=== PATIENT | female | born 1945 | race Caucasian/White ===

== ENCOUNTER → 2022-07-01 12:33 | Outpatient (CLI) | payer MEDICARE, OTHER, SELFPAY ==
--- NOTE | 2022-07-01 | DI.RAD.S_ITS ---
PROCEDURE: XR KNEE LT 3V INDICATIONS: Bilateral primary osteoarthritis of knee TECHNIQUE: 3 views of the knee were acquired. COMPARISON: None. FINDINGS: Bones: No fractures or dislocations. Severe joint space narrowing of the medial lateral compartments, moderate patellofemoral compartment narrowing, tricompartmental spurring. Degenerative changes of the right knee also present. Soft tissues: Small joint effusion. No suspicious soft tissue calcifications. IMPRESSION: Degenerative changes of the knee. Small nonspecific joint effusion. If symptoms persist, follow-up radiographs and/or CT or MRI may be helpful for further evaluation. Dictated by: Dominick Dia M.D. on 07/01/2022 at 16:47 Approved by: Dominick Dia M.D. on 07/01/2022 at 16:49
== END ==
PROVIDERS: PCP Physician Assistant; Referring Provider Internal Medicine; Visit Provider Internal Medicine
DX: M17.0 Bilateral primary osteoarthritis of knee (principal)
CPT/HCPCS: 73562

== ENCOUNTER → 2022-10-26 09:55 | Outpatient (CLI) | payer MEDICARE, OTHER, SELFPAY ==
[2022-10-26 11:02] LABS: Add Manual Diff / Slide Review NO; Basophils Absolute Auto 100 /uL (0-100); Basophils Percent Auto 1.1 % (0-2); Eosinophils Absolute Auto 200 /uL (0-450); Eosinophils Percent Auto 3.3 % (2-4); Hematocrit 41.4 % (36-46); Hemoglobin 14.4 g/dL (12.0-16.0); Lymphocytes Absolute Auto 2000 /uL (1100-4500); Lymphocytes Percent Auto 28.8 % (25-40); Mean Corpuscular HGB Conc 34.8 % (30-36); Mean Corpuscular Hemoglobin 30.9 PG (26-34); Mean Corpuscular Volume 88.9 fL (80-100); Monocytes Absolute Auto 500 /uL (0-900); Monocytes Percent Auto 6.8 % (3-14); Neutrophils Absolute Auto 4100 /uL (1500-7000); Platelet Count 288 X10^3/uL (150-400); Red Blood Cell Count 4.66 X10^6/uL (4.0-5.2); White Blood Cell Count 6.9 X10^3/uL (4.5-11.0)
[2022-10-26 11:28] LABS: BUN Creatinine Ratio 10.4 (6-22); Blood Urea Nitrogen 8 mg/dL (7-17); Calcium 9.7 mg/dL (8.4-10.2); Carbon Dioxide 29 mmol/L (22-32); Chloride 100 mmol/L (98-107); Estimated Glomerular Filt Rate > 60 mL/min (>60); Glucose 89 mg/dL (80-110); HEMOLYSIS < 15 (0-50); Potassium 3.9 mmol/L (3.4-5.1); Sodium 136 mmol/L (137-145)
[2022-10-26 11:50] LABS: Hemoglobin A1C% w Est Avg Glu 4.8 % (4.0-6.0)
== END ==
PROVIDERS: PCP Physician Assistant; Referring Provider Orthopaedic Surgery Adult Reconstructive Orthopaedic Surgery; Visit Provider Orthopaedic Surgery Adult Reconstructive Orthopaedic Surgery
DX: Z01.818 Encounter for other preprocedural examination (principal); R73.9 Hyperglycemia, unspecified; Z01.812 Encounter for preprocedural laboratory examination
CPT/HCPCS: 36415; 80048; 83036; 85025; 93005

== ENCOUNTER 2023-02-02 07:44 | Day surgery (SDC) | payer MEDICARE, OTHER, SELFPAY ==
[2023-01-23 08:35] VITALS: BMI 32.5
[2023-02-02] VITALS (12 sets, daily range): BP systolic 114–132; BP diastolic 50–68; PULSE 64–90; RESP 16–22; TEMP 35.8–36.4; O2SAT 94–99; BMI 32.5; BMI 32.1
--- NOTE | 2023-02-02 07:26 | DI.RAD.S_ITS ---
PROCEDURE: XR KNEE LT 1TO2V INDICATIONS: left total knee TECHNIQUE: 2 view(s) of the knee acquired. COMPARISON: [facility], CR, XR KNEE LT 3V, 07/01/2022, 12:41. FINDINGS: Bones: Patient is status post knee joint arthroplasty. Hardware components are in expected positions. Visualized bony structures are intact. Soft tissues: Overlying postoperative changes are noted. IMPRESSION: Expected immediate postoperative appearance, status post total left knee arthroplasty. Dictated by: Roge Son M.D. on 02/02/2023 at 15:45 Approved by: Roge Son M.D. on 02/02/2023 at 15:45
[2023-02-02] MEDS: ACETAMINOPHEN 325 MG TABLET 975 MG PO (08:23)
[2023-02-02] MEDS: LACTATED RINGERS 1,000 ML 42 ML IV ×2 (08:23→10:42)
[2023-02-02] MEDS: MELOXICAM 7.5 MG TABLET PO (08:23)
--- NOTE | 2023-02-02 09:32 | PM.PREOP ---
Pre-operative Note Interval Note History & Physical reviewed/Exam performed by Physician: Yes Changes to H&P: No
[2023-02-02] MEDS: CEFAZOLIN 2 GM/100 ML PREMIX 100 ML IV ×2 (10:00→17:35)
[2023-02-02] MEDS: ACETAMINOPHEN IV 1,000 MG/100 ML VIAL 400 MG IV (10:25)
--- NOTE | 2023-02-02 10:26 | SUR.OPER ---
Supine on padded OR bed. Pillow under head, arms secured on padded armboards <90 degree abduction. Safety belt across torso. Non-operative leg secured with tape over blanket over lower leg. Operative leg secured in DeMayo/Donovan/Nathe positioner. Foam padded brace at thigh of operative leg.
[2023-02-02] MEDS: TRANEXAMIC ACID 1,000 MG VIAL 1000 MG INJ ×2 (10:36→11:42)
[2023-02-02] MEDS: ROPIVACAINE/EPI/CLONIDINE/KET 50 ML SYRINGE INJ (10:36)
--- NOTE | 2023-02-02 12:06 | P.OP_ITS ---
Operative Date/Time/Diagnoses Date of procedure: 02/02/23 Pre-op diagnosis: Left knee arthritis Post-op diagnosis: same Procedure & Clinicians Procedure: Left total knee arthroplasty ([id number]) Same procedure as scheduled: Yes Surgeon: Josse De La Garza [facility] Former: Mart Clark Anesthesia Type: Spinal, Peripheral nerve block and Local Operative Notes Estimated Blood Loss (mL): 150 Tourniquet time (min): 77 Procedure in detail: Implants: Анна Persona Medial Congruent Total Knee Arthroplasty: * Size 9 narrow Cruciate Retaining Femoral Component * Size D Tibial Component * Size 11 Medial Congruent Polyethylene Insert * Unresurfaced Patella Procedure in Detail: This patient was evaluated for knee pain which caused significant impairment in activities of daily living and correlated to degenerative changes in the knee. ?These symptoms were refractory to extensive attempts at nonoperative management. ?Risks and benefits of operative versus nonoperative management were discussed at length and the patient wished to proceed with operative management. ?The patient was met in the preoperative holding area. ?All questions were answered. ?The operative site was marked. ?Informed consent was signed. ?The patient was brought back to the operating room and anesthesia was induced. ?After being transferred to the operating table, the operative extremity was prepped and draped in the usual sterile fashion. ?A time-out procedure was performed. ?The assistance of a physician medical assistant supervisor was required throughout the case for soft tissue retraction, positioning, wound closure, room set up. ?W ithout the assistance of a skilled practitioner the surgery would have taken significantly longer. The tourniquet was inflated and a medial parapatellar approach to the knee was utilized. ?Flaps were elevated and the arthrotomy was marked to guide closure at the conclusion of the procedure. ?A medial release was performed off of the tibial joint line. ?Soft tissue was released from behind the patellar tendon to clear the lateral side of the tibia. ?The knee was brought into flexion and an opening reamer was used to open the canal. ?An intramedullary guide was introduced. ?A 5 degree resection with a +2 cut had been planned based off of the preoperative imaging and assessment of the patient's preoperative passive knee extension. ?This was resected. ?The knee was hyperflexed and externally rotated to allow access to the cruciates. ?These were resected. ?Retractors were placed on the medial, posterior and lateral tibia and additional resection at the base of the PCL was used to allow the tibia to sublux anteriorly providing access to the tibia. A opening reamer was used to open up the tibial canal beginning at the ACL insertion. ?An intramedullary javid was introduced down the diaphysis and a +4 cut was planned off of the medial side of the tibia. ?This was performed and the knee was brought back to full extension. A 10 mm spacer block allowed the knee to come into full extension. ?A force gauge screw combine driver was used on the fusion tensioner and the knee was noted to be symmetrically balanced with 60 lb of force at 10 mm. ?The knee was brought into flexion and the force gauge screwdriver was used to apply 60 pounds of force which balanced the rotation at 7 degrees. I pinned this in the 10 mm hole and sized using a measured resection sizer. After placing the corresponding 4-in-1 block I again checked the balance of the knee at 90 degrees of flexion with the Fuzion tensioner and found it to be satisfactory. I checked the notch point with an ata wing. Being satisfied with the position of my 4 in 1 block both in terms of gap symmetry and gap balance I performed the 4 in 1 cuts while protecting the soft tissues with soft tissue retractors. ?The four in 1 block was removed and corresponding trials were placed including a floating tibia. ?The knee achieved full extension, had minimal opening with either medial or lateral stress, had good passive knee flexion which allowed the heel to rest on the patient's buttock, had good patellar tracking, and had minimal lift-off with external and internal rotation at 90? of flexion. Being satisfied with this trial I planned to move forward with cementation. ?The tibia and femur were irrigated and dried. ?Portions of chamfer cuts were used as cement restrictors in the femur and tibia. The tibia was sized and prepped while cement was mixed. ?The cement was placed down the canal and pressurized into the cut tibial surface. ?The tibial component was covered in cement and placed in the canal as it was guided in by the keel punch. ?Cement was removed from around the tibial component and a second round of impaction was performed with a second round of cement removal. ?The knee was flexed and the tibia was reduced und erneath the femur. ?Cement was placed on the femur and the femoral component was impacted into place. ?Excess cement was removed from around the femur. ?A trial insert was used for the cement curing process. ?The cement was allowed to cure while the knee remained in full extension with pressure on the heel. ?The soft tissues were bathed in a dilute mixture of Betadine and peroxide. ?The cement was allowed to fully cure and the polyethylene trial was removed. The posterior knee was inspected for excess cement and some was removed. The knee was again trialed and I elected to move forward with implantation of a 11 mm medial congruent polyethylene. ?The correspond polyethylene implant was inserted. ?The tourniquet was taken down. ?Hemostasis was achieved. ? A dilute mixture of ropivacaine epinephrine clonidine and ketorolac was injected throughout the wound including the MCL, posterior capsule on the medial side only, VMO, medial femoral periosteum, lateral femoral periosteum, patellar t endon and adductor canal to provide a low adductor canal block. ?The wound was closed using a combination of Vicryl Stratafix and Monocryl sutures. ?Dermabond was applied. ?A soft dressing was applied. ?The knee was wrapped in an Mike wrap and ice was applied prior to the patient leaving operating room. ?The patient was transferred off of the operating table and taken to the PACU. Plan for aftercare: * Transfer to floor following recovery in PACU * Transition from hospital gown to regular clothing immediately upon arrival on floor * Weightbearing as tolerated * Mobilization as soon as the patient has recovered from anesthesia * Aspirin 81 twice per day for DVT prophylaxis * Multimodal pain regimen with no IV opioids ordered * Anticipate mobilization with physical therapy today and discharge home tomorrow morning. Patient will remain in hospital overnight for monitoring given baseline dementia and delirium risk * Follow up at [facility] in 2 weeks
[2023-02-02] MEDS: LACTATED RINGERS 1,000 ML 100 ML IV (13:30)
[2023-02-02] MEDS: ACETAMINOPHEN 325 MG TABLET 650 MG PO ×2 (13:30→18:22)
--- NOTE | 2023-02-02 16:32 | PT.IIE ---
Current Diagnoses Unilateral primary osteoarthritis, left knee (02/02/23) Surgery Performed Operation Date: 02/02/23 09:45 Actual Procedures p Total Knee Arthroplasty(Left) - Josse De La Garza MD Surgical History (Last Updated 01/23/23 @ 09:23 by Ene Viveros, RN) Hx of craniotomy (07/2019) Medical History (Last Updated 01/23/23 @ 09:23 by Ene Viveros, RN) Alzheimer's dementia Balance problem Chronic UTI Depression HLD (hyperlipidemia) Seizures Physical Therapy Inpatient Evaluation/Re-Eval M1 PT/OT-IP Prior Functional Status Start: 02/02/23 15:22 Freq: NEEDED Status: Active Protocol: Document 02/02/23 16:00 MB (Rec: 02/02/23 16:32 MB [id number]) Medical Review Prior Functional Status Medical History Reviewed Yes Diet/Fluid Consistency Regular Communication Pt is hypoverbal and answers most questions. He reports, there's some dementia setting in Mobility and Gait I without AD Activities of Daily Living and IADL's I for her ADLs, pt does driving, shopping, etc Social History Household Members spouse Living Arrangements House Number of Floors (Floors) One Floor Number of Stairs To Enter/Railing? 1 platform step to enter Home Environment Standard Height Toilet,Walk in Shower Home Equipment Front Wheel Walker Employment Status Retired M2 PT-IP Current Condition Start: 02/02/23 15:22 Freq: NEEDED Status: Active Protocol: Document 02/02/23 16:00 MB (Rec: 02/02/23 16:32 MB [id number]) Physical Therapy Current Condition Current Condition Evaluation Date 02/02/23 Treatment Diagnosis L TKA M3 PT-IP Subjective Start: 02/02/23 15:22 Freq: NEEDED Status: Active Protocol: Document 02/02/23 16:00 MB (Rec: 02/02/23 16:32 MB [id number]) Subjective Physical Therapy Visit Type Type Initial Evaluation Visit Start Time 16:00 Visit Stop Time 16:22 Total Visit Minutes 22 Number of CORRECTIONAL MAINTENANCE TECHNICIAN Visits 0 Physical Therapy Visit Comments Patient Comments I'm okay! Therapy Pain Assessment Pain When Pain Assessed During Mobility Pain Present Pain Present Pain Reported Location Left Knee Intensity 4 Scale Used Pitts-Alejandra (Faces) Description Acute Pain Behaviors Facial Grimacing,Guarding Pain Management Techniques Apply Cold,Distraction,Re- positioning M4 PT-IP Mobility and Gait Start: 02/02/23 15:22 Freq: NEEDED Status: Active Protocol: Document 02/02/23 16:00 MB (Rec: 02/02/23 16:32 MB [id number]) PT-Bed Mobility Assessment Supine to Sit Supine to Sit Minimal Assistance,1 Person Assistance,Head of Bed Elevated,Bedrails Scooting Scooting to Edge of Bed Minimal Assistance PT-Transfer Assessment Sit to and From Stand Sit to and from Stand Minimal Assistance,1 Person Assistance,Use of Upper Extremities Equipment Transfer Assistive Device Gait Belt,Front Wheeled Walker Orthotic/Prosthetic Devices or Brace: No Transfers Transfer Destination Chair Transfer Technique Stepping Transfer Ability Level of Assist Minimal Assistance,1 Person Assistance,Use of Upper Extremities Comments Mobility Comments PT positions gait belt around left foot and pt is able to use it with cues to scoot her left leg to the left and then PT also provides assistance. Min to CGA for transfers with cues for hand placement. Also, cues for use of walker and step-to corazon for forward and retropulsion stepping Gait Assessment Gait Gait Assistance Required: Minimum Assistance,1 Person Assist Distance (Feet) 4 Able to Maintain Weight Bearing Status Yes During Gait Assistive Devices Assistive Device Gait Belt,Front Wheeled Walker Orthotic/Prosthetic Devices or Brace: No Gait Deviations General Gait Pattern Decreased Stride Length, Decreased Feet Clearance, Flexed Trunk,Step-to Gait,Wide Based Gait Factors Limiting Gait Function Factors Limiting Gait Function Decreased Activity Tolerance, Decreased Strength,Limited Range of Motion,Poor Safety Awareness Comments Gait Comments Pt has some trouble following functional cues for bed mobility, transfers and stepping PT-Balance Assessment Sitting Balance and Reactions Static Sitting Balance Ability Fair Dynamic Sitting Balance Ability Fair Standing Balance and Reactions Static Standing Balance Ability Fair Dynamic Standing Balance Ability Fair Device Used RW M5 PT-IP Objective Assessments Start: 02/02/23 15:22 Freq: NEEDED Status: Active Protocol: Document 02/02/23 16:00 MB (Rec: 02/02/23 16:32 MB [id number]) Orientation Orientation/Cognition Level of Alertness Confusional State Orientation Name,Birthday Safety Awareness Decreased Safety Awareness Memory Description Short Term Impaired,Fdc Impaired Comments Pt is hypoverbal and is not A& O to situation, location, or date Gross Range of Motion Upper Extremity ROM Assessment Within Functional Limits Lower Extremity ROM Assessment Left Impaired Impairments Left knee range grossly 10-30 deg Strength Lower Extremity Strength Assessment Left Impaired Ankle 4 Comments Strength Comments Left knee and hip not tested post-op Sensation Assessment Comments Sensation Comments Does not clearly answer sensory questions M6 PT-IP Treatment Start: 02/02/23 15:22 Freq: NEEDED Status: Active Protocol: Document 02/02/23 16:00 MB (Rec: 02/02/23 16:32 MB [id number]) Physical Therapy Treatment Exercises Exercises Ankle Pumps,Quad Sets,Heel Slides Education Education Provided Weight Bearing Status,Post-Op Packet,Safety M7 PT-IP Assessment and Plan Start: 02/02/23 15:22 Freq: NEEDED Status: Active Protocol: Document 02/02/23 16:00 MB (Rec: 02/02/23 16:32 MB [id number]) PT Summary Assessment and Plan Potential Rehabilitation Potential Good Status of Condition at Evaluation Evolving Summary Impairments Pain,ROM,Strength,Balance, Cognition,Bed Mobility, Transfers,Gait,Activity Tolerance Progress Towards Goals Progressing Toward Goals Assessment Summary Pt is a pleasant lady presenting with some cognitive challenges who participates well with same day PT consult. She requires min A and cues for most mobility today. She will benefit from acute and post-acute PT to improve functional I. She might benefit from a shower chair or BSC for use at home. Her is supportive and answers most questions. She has not used an AD at home and this may be challenging given cognitive issues and she tends to push it away initially when asked to stand up. states they have a RW like the one in the hospital at home and he does anticipate her using that at d /c. [facility]. Goals Bed Mobility Goal Independent Transfer Goal Independent,Front Wheeled Walker Gait Goal Independent,Front Wheel Walker Gait Distance 75 Other Goals Pt will ascend and descend one platform step with RW and no more than superv assistance to allow safe home entry. Frequency of Treatment Frequency Of Treatment Twice a Day Treatment Plan Physical Therapy Treatment Plan Bed Mobility Training,Transfer Training,Gait Training, Therapeutic Exercise,Balance Retraining,Post Op Education, Discharge Planning,Hot or Cold Pack Weight Bearing Status Weight Bearing Status Weight Bear as Tolerated Recommendations To Nursing Amount of Assist Needed 1 Person Assist Discharge Recommendations PT Discharge Recommendations Home with 29/08 Assist Available,Outpatient PT Transportation Needs at Discharge Private Vehicle
[2023-02-02] MEDS: CITALOPRAM 10 MG TABLET PO (17:35)
[2023-02-02] MEDS: IBUPROFEN 600 MG TABLET PO (18:22)
[2023-02-02] MEDS: DOCUSATE 100 MG CAPSULE PO (20:11)
[2023-02-02] MEDS: ASPIRIN EC 81 MG TABLET PO (20:11)
[2023-02-03] VITALS: BP 153/64; PULSE 82; RESP 16; TEMP 36.5; O2SAT 99
[2023-02-03] MEDS: CEFAZOLIN 2 GM/100 ML PREMIX 100 ML IV (01:16)
[2023-02-03] MEDS: IBUPROFEN 600 MG TABLET PO ×2 (01:16→08:06)
[2023-02-03 05:22] LABS: Hematocrit 32.1 % (36-46); Hemoglobin 11.5 g/dL (12.0-16.0)
[2023-02-03 05:37] VITALS: BP 131/53; PULSE 67; RESP 16; TEMP 36.6; O2SAT 96
--- NOTE | 2023-02-03 07:22 | PM.DS.1 ---
History of Present Illness History of Present Illness Date Patient Seen: 02/03/23 Time Patient Seen: 07:15 Chief complaint: Left TKA 02/02 Narrative: This patient was evaluated for knee pain which caused significant impairment in activities of daily living and correlated to degenerative changes in the knee. ?These symptoms were refractory to extensive attempts at nonoperative management. Left total knee arthorplasty was performed 02/02/2023. Today she is feeling well. She has no required any pain medication during her stay thus far. She has been able to use the toilet with assistance. Denies any fever, chills, nausea or vomiting. No increased pain or swelling into her lower leg. Discharge Providers Provider Date of admission: 02/02/2023 Discharge Date: 02/03/23 Primary care physician: Treasure Mariee PA-C Consults: 02/02/23 07:25 Consult to Anesthesiology Routine Comment: Consulting Provider: Anesthesiologist Reason for consultation: Regional block for post operative pain control 02/02/23 12:59 Consult to Discharge Planning Routine Comment: Consult to Physical Therapy Evaluate & Treat Comment: Physician Instructions: postop TKA protocol Discharge provider: Patrick Croft PA-C Summary Hospital Course Discharge Diagnosis: Status post left knee total arthroplasty Hospital Course: Pain control. Physicial therapy Status at Discharge Cognitive/behavioral status at discharge: oriented Functional status at discharge: uses cane/walker Overall status at discharge: patient is back to baseline Time Spent with Patient Time spent: Less than 30 minutes Exam Vital Signs (past 8 hours): - 02/03/23 00:00 02/03/23 05:37 Temperature 97.7 F 97.8 F Pulse Rate 82 67 Respiratory Rate 16 16 Blood Pressure 153/64 H 131/53 L Pulse Oximetry 99 96 Oxygen Delivery Method Room Air Oxygen Flow Rate 0 Narrative Exam Narrative: Patient found sitting on the edge of her bed after using the toilet with assistance of the METAPHYSICIAN. Dressing is well maintained with no signs of drainage. No pain to compression of posterior thigh and calf. Able to dorsiflex and plantar flex at the ankle against resistance. Lower extremity grossly intact bilaterally. Const General: cooperative, healthy appearing and comfortable Orientation: alert, awake and oriented x3 Resp Effort & Inspection: normal respiratory effort and able to speak in complete sentences Objective Labs 02/03/23 05:04 Labs: Laboratory Results - last 24 hr 02/03/23 05:04 Hgb 11.5 L Hct 32.1 L PFSH Medical History (Updated 01/23/23 @ 09:23 by Ene Viveros, RN) Depression Balance problem Chronic UTI HLD (hyperlipidemia) Seizures Alzheimer's dementia Surgical History (Updated 01/23/23 @ 09:23 by Ene Viveros, RN) Hx of craniotomy (07/2019) Social History household members: spouse Smoking Status: Never smoker alcohol intake: never Discharge Assessment & Plan Assessment and Plan Assessment: Status Post Left Knee Arthroplasty Plan of Treatment: Discharge to home. Postoperative DVT prophylaxis: ASA 81mg bid for 6 weeks. Oxycodone, Mobic and APAP for pain control. Rx received before surgery. Start outpatient PT in 7 to 10 days. Follow up with [facility] in 2 weeks for wound check. Discharge Plan Discharge Plan Patient Disposition: Home Provider Discharge Comment: DC home pending PT approval Discharge orders & Medications Discharge Orders: Discharge (Order); Ordered 02/03/23 Ordered By: Patrick Croft Prescriptions: Continued citalopram 10 mg Tablet 10 mg PO QPM ibuprofen 200 mg Tablet 200 - 400 mg PO DAILY rosuvastatin 10 mg Tablet 10 mg PO DAILY aspirin 81 mg Capsule 81 mg PO DAILY Follow up/Referrals: Treasure Mariee PA-C [Primary Care Provider] - Josse De La Garza MD [Physician] - As previously scheduled (Follow up with Roberta Cao PA-C, on 02/16/2023 @ 1:[address] [facility] in [place].) Diet/Activity/Treatments Diet: Diet as Tolerated Activity: As tolerated. Weightbearing with walker Skin/Wound/Dressing Care Report to your healthcare provider any signs of infection, such as:: chills, fever, night sweats, unusual drainage and unusual redness Dressing: Keep dressing clean and dry for 2 weeks. Should dressing become wet or dirty, replace with gauze padding and cotton wrap Other wound treatment: Ice knee up to 15 minutes three times a day or as previous instructed by surgeon. Visit Report/Discharge Packet Instructions: DI for Knee Replacement Stand Alone Forms: Patient Portal/API, Surgery Discharge Discharge Data Primary Care Provider: Treasure Mariee Attending Provider: Josse De La Garza Quality VTE Deep Vein Thrombosis/Pulmonary Embolism Present on Admission: No
[2023-02-03] MEDS: ATORVASTATIN 20 MG TABLET PO (08:06)
[2023-02-03] MEDS: ACETAMINOPHEN 325 MG TABLET 650 MG PO (08:06)
[2023-02-03] MEDS: ASPIRIN EC 81 MG TABLET PO (08:06)
[2023-02-03] MEDS: DOCUSATE 100 MG CAPSULE PO (08:06)
[2023-02-03 08:25] VITALS: BP 112/50; PULSE 64; RESP 20; TEMP 35.8; O2SAT 96
--- NOTE | 2023-02-03 09:30 | PT.IPTN ---
Current Diagnoses Unilateral primary osteoarthritis, left knee (02/02/23) Surgery Performed Operation Date: 02/02/23 09:45 Actual Procedures p Total Knee Arthroplasty(Left) - Josse De La Garza MD Physical Therapy Treatment Note M2 PT-IP Current Condition Start: 02/02/23 15:22 Freq: NEEDED Status: Discharge Protocol: Document 02/02/23 16:00 MB (Rec: 02/02/23 16:32 MB [id number]) Physical Therapy Current Condition Current Condition Evaluation Date 02/02/23 Treatment Diagnosis L TKA M3 PT-IP Subjective Start: 02/02/23 15:22 Freq: NEEDED Status: Discharge Protocol: Document 02/03/23 09:30 AB (Rec: 02/03/23 13:35 AB [id number]) Subjective Physical Therapy Visit Type Type Treatment Note Visit Start Time 09:30 Visit Stop Time 10:11 Total Visit Minutes 41 Number of HOTEL ASSISTANT MANAGER Visits 0 Physical Therapy Visit Comments Patient Comments agreeable to do PT Therapy Pain Assessment Pain When Pain Assessed During Mobility Pain Present Pain Present Pain Reported Location Left Knee Intensity 3 Scale Used Numeric (0 - 10) Pain Management Techniques Distraction,Modification of Treatment,Re-positioning, Timing of Activity with Medications M4 PT-IP Mobility and Gait Start: 02/02/23 15:22 Freq: NEEDED Status: Discharge Protocol: Document 02/03/23 09:30 AB (Rec: 02/03/23 13:35 AB [id number]) PT-Bed Mobility Assessment Supine to Sit Supine to Sit Standby Assistance Sit to Supine Sit to Supine Standby Assistance PT-Transfer Assessment Sit to and From Stand Sit to and from Stand Contact Guard Assistance,1 Person Assistance,Use of Upper Extremities Equipment Transfer Assistive Device Gait Belt,Front Wheeled Walker Orthotic/Prosthetic Devices or Brace: No Transfers Transfer Destination Bed,Chair Transfer Technique ambulated Transfer Ability Level of Assist Contact Guard Assistance,1 Person Assistance,Use of Upper Extremities Comments Mobility Comments pt supine in bed and agreed to do PT. spouse and brother in room. pt completed supine to sit SBA, sit to stand cGA and ambulated in room using FWW CGA ~ 20 ft. pt sat on the chair. spouse initially stated that he will be able to assist pt but has to use his SPC. initiated caregiver training. educated on how to put safety belt on but spouse was not able to stand long enought to put safety belt on pt. pt's brother stepped in and stated that he can assist pt and can come in daily to assist pt at home. educated pt's brother on how to use safety belt and how to assist pt. brother was able to put safety belt on pt and assisted pt with sit to stand, ambulation in room using FWW CGA. pt sat on EOB and demonstrated sit<>supine SBA. educated pt and brother on how to up/down platform step. pt ambulated to the platform step with PT initially assisting pt using FWW and completed min A. pt completed again with her brother assisting but brother was not able to cue pt and PT has to step in to to provide cues for safety. pt completed again and her brother was able to assist and cue pt on last attempt. pt ambulated back to her room ~ 35 ft using FWW CGA. sat on the chair. positioned pt on the chair. call light and table placed within reach. pt and family without further concerns. Gait Assessment Gait Gait Assistance Required: Contact Guard Assist Distance (Feet) 35 Able to Maintain Weight Bearing Status Yes During Gait Assistive Devices Assistive Device Gait Belt,Front Wheeled Walker Orthotic/Prosthetic Devices or Brace: No Gait Deviations General Gait Pattern Antalgic,Decreased Feet Clearance Factors Limiting Gait Function Factors Limiting Gait Function Decreased Activity Tolerance, Decreased Strength,Difficulty Following Directions,Limited Range of Motion,Pain,Poor Balance,Poor Safety Awareness Stair Climbing Assessment Evaluation Level of Assist On Stairs Minimal Assistance Devices Stair Climbing Assistive Devices Front Wheel Walker Technique/Endurance Stair Climbing Direction Ascend and Descend Stair Climbing Technique Step to Step Number of Steps Climbed 1 Stair Climbing Set # Repetitions (reps) 3 M5 PT-IP Objective Assessments Start: 02/02/23 15:22 Freq: NEEDED Status: Discharge Protocol: Document 02/02/23 16:00 MB (Rec: 02/02/23 16:32 MB [id number]) Orientation Orientation/Cognition Level of Alertness Confusional State Orientation Name,Birthday Safety Awareness Decreased Safety Awareness Memory Description Short Term Impaired,Data Scientist Impaired Comments Pt is hypoverbal and is not A& O to situation, location, or date Gross Range of Motion Upper Extremity ROM Assessment Within Functional Limits Lower Extremity ROM Assessment Left Impaired Impairments Left knee range grossly 10-30 deg Strength Lower Extremity Strength Assessment Left Impaired Ankle 4 Comments Strength Comments Left knee and hip not tested post-op Sensation Assessment Comments Sensation Comments Does not clearly answer sensory questions M6 PT-IP Treatment Start: 02/02/23 15:22 Freq: NEEDED Status: Discharge Protocol: Document 02/03/23 09:30 AB (Rec: 02/03/23 13:35 AB [id number]) Physical Therapy Treatment Education Education Provided Safety M7 PT-IP Assessment and Plan Start: 02/02/23 15:22 Freq: NEEDED Status: Discharge Protocol: Document 02/03/23 09:30 AB (Rec: 02/03/23 13:35 AB [id number]) PT Summary Assessment and Plan Potential Rehabilitation Potential Good Summary Impairments Pain,ROM,Strength,Balance, Coordination,Sensation,Tone, Cognition,Bed Mobility, Transfers,Gait,Activity Tolerance Progress Towards Goals Slow Progress - Other Assessment Summary pt requiring CGA with ambulation and min A with stair climbing. attempted to do training with spouse but spouse was not able to do training to assist pt. caregiver training then conducted with pt and pt's brother. pt's brother was able to assist pt with mobility. pt plans to go home with assist and has outpt PT set up. Goals Bed Mobility Goal Independent Transfer Goal Independent,Front Wheeled Walker Gait Goal Independent,Front Wheel Walker Gait Distance 75 Other Goals Pt will ascend and descend one platform step with FWW and no more than superv assistance to allow safe home entry. Days to Meet Goals 3 Frequency of Treatment Frequency Of Treatment Twice a Day Treatment Plan Physical Therapy Treatment Plan Bed Mobility Training,Transfer Training,Gait Training, Therapeutic Exercise,Balance Retraining,Post Op Education, Discharge Planning,Hot or Cold Pack Weight Bearing Status Weight Bearing Status Weight Bear as Tolerated Allowed Weight Bearing Amount (enter % LLE WBAT or #) (%) Recommendations To Nursing Amount of Assist Needed 1 Person Assist Discharge Recommendations PT Discharge Recommendations Home with 29/08 Assist Available,Outpatient PT Transportation Needs at Discharge Private Vehicle
--- NOTE | 2023-02-03 11:51 | CM.DANOTE ---
Patient is a 78 yo female who was admitted on 02/02/23 for LTKA. Pt has [place] and [place] for [place] and her PCP is Treasure Mariee. EMR was reviewed. Per Ortho PA, pt tolerated procedure well and no pain and voided and now to just work with PT once more before discharge home later today and no identified barriers to discharge. Per PT, recommending home with assist and outpt PT and to do stairs today prior to d/c. Per RN, pt was anxious to get home and discharged right after PT did stair training this morning and no concerns noted for d/c. Pt lives in [facility] with her spouse who was bedside this morning and provided transport home and spouse very supportive and noted that pt now having some mild dementia/memory loss and he confirms he can assist pt as needed at d/c and outpt PT already set up. Plan; Patient discharged home this morning via spouse POV and outpt PT set up. No further SW needs at this time. SALAS Sanderson Discharge Planning/Care Management Pre-Anesthesia Assessment Start: 01/23/23 08:35 Freq: Status: Complete Protocol: Document 01/23/23 08:35 [facility] (Rec: 01/23/23 09:23 CAB [id number]) Pre-Anesthesia Assessment PAC Comment Pt has Alzheimers and would benefit from assisting with admission process dos. Preferred Name Dulcie Patient Information Reviewed Via Phone Assessment Assessment Completed With Spouse Comment Pt has Alzheimer's disease Diagnostic Results BMP/CMP,CBC,EKG Comment Labs/EKG @ [facility] 10/26/22 Primary Care Provider Ivonne Mcdermott Button Comment PCP pre-op visit Seen Specialist in Last 12 Months Yes Specialist Seen Orthopedist Primary Language Syriac Electrician Required No Height 162.56 cm Weight 86.183 kg Body Mass Index (BMI) 32.5 Hearing Ability Normal Visual Assist Glasses Dentition Type Teeth, Natural Present,Teeth, Missing Barriers to Learning Memory Other Aids No Comment Alzheimer's Hx Anesthesia Reactions No Hx Family Anesthesia Reaction No Hx Malignant Hyperthermia No Hx Blood Transfusions No Anesthesia Review Requested No Academic Adviser No alcohol intake never Smoking Status Never smoker Substance Use Type does not use Pain Present Pain Reported Musculoskeletal Symptoms Abnormal Gait,Difficulty Walking,Joint Pain,Joint Stiffness History of Falling (Recent or History of Yes ) Patient is completely paralyzed or No completely immobile Mental Status Oriented to own ability Is patient on oxygen? No Does patient have HINDS/SOB No Hx Sleep Apnea No Currently Taking a Beta Timothy No Hx Chest Pain No Hx SOB No Hx Syncope or Dizziness No Anti-Coagulant Therapy No Has a Meeting Facilitator No Cardiac Testing No Hx Pacemaker/ICD No Pacemaker Rep Required? No Cardiac Clearance Received Not Applicable Diet Type At Home Regular Dysphagia No Gastrointestinal Symptoms Constipation Chronic UTI Yes: Cephalexin TID Urinary Catheter Present No Hx Urinary Self Catheterization No Diabetes No Patient No Lactating No Hx Drug Resistant Organism No Presence of External or Internal Medical No Devices Received a COVID vaccine? Yes Received all doses? No Marital Status Lives With spouse Current Living Arrangements House Number of Floors (Floors) One Floor Support System Family,Spouse Comment Brother in-law will assist with care at [place], along with neighbors Does the Patient Have Assistance After Yes Surgery Patient Discharge Plan Description Return Home Comment Pt not advised on length of stay per surgeon Feels Safe in Current Environment Yes Been Physically Hurt or Threatened By a No Person in Current Environment Do you have thoughts of harming yourself None or others? Are you currently considering suicide? No Do you have a plan to hurt yourself or No Plan others? Do You Have Any Spiritual Beliefs That No May Affect Your HC Choices? Do You Have Any Cultural Practices That No May Affect Your HC Choices? Comment Advent Who Can We Speak to About Patient's Care Family, friends Identifying Code for Release of Patient Declines to issue Information Health Care Proxy/Next of Kin Howard () Health Care Proxy Emergency Contact Name Meño (Brother) Emergency Contact Advance Directives? Yes Advance Directives on File No Power of Roving Weight Gauger Yes Power of Roving Weight Gauger Name Howard () Power of Roving Weight Gauger PAC Instructions Do not shave/clip surgical site,Durable medical equipment ,Medications to take/avoid, Nasal antibiotic,No ETOH/ petroleum product on skin DOS, NPO,Post-op transportation,Pre -surgical wash,Sturdy shoes/ comfortable clothes,Do not bring valuables and remove jewelry
== END 2023-02-03 10:10 | disposition home or self-care (01) ==
LOC: OR 07:48 → AC 07:49
PROVIDERS: PCP Physician Assistant; Referring Provider Orthopaedic Surgery Adult Reconstructive Orthopaedic Surgery; Visit Provider Orthopaedic Surgery Adult Reconstructive Orthopaedic Surgery
PROC: 0SRD0JZ Replacement of Left Knee Joint with Synthetic Substitute, Open Approach (ICD-10-PCS; CPT 27447; principal; 2023-02-02 09:45)
DX: M17.12 Unilateral primary osteoarthritis, left knee (principal)
CPT/HCPCS: 27447; 36415; 73560; 85014; 85018; 97161; 97530; C1776; J0131; J0690; J2405; J2704

== ENCOUNTER → 2024-01-11 12:40 | Outpatient (CLI) | payer MEDICARE, OTHER, SELFPAY ==
[2023-02-02 13:41] VITALS: BMI 32.1
--- NOTE | 2024-01-11 12:56 | EKG_ITS ---
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
== END ==
PROVIDERS: PCP Physician Assistant; Referring Provider Orthopaedic Surgery Adult Reconstructive Orthopaedic Surgery; Visit Provider Orthopaedic Surgery Adult Reconstructive Orthopaedic Surgery
DX: Z01.818 Encounter for other preprocedural examination (principal)
CPT/HCPCS: 93005; 93010

== ENCOUNTER 2024-01-12 11:39 | Day surgery (SDC) | payer MEDICARE, OTHER, SELFPAY ==
[2023-02-02 13:41] VITALS: BMI 32.1
[2024-01-03 09:45] VITALS: BMI 32.5
[2024-01-12] VITALS (11 sets, daily range): BP systolic 90–144; BP diastolic 58–76; PULSE 68–82; RESP 12–18; TEMP 35.9–37; O2SAT 96–99; BMI 32.5
--- NOTE | 2024-01-12 06:00 | DI.RAD.S_ITS ---
PROCEDURE: XR KNEE RT 1TO2V INDICATIONS: TKA TECHNIQUE: 2 view(s) of the knee acquired. COMPARISON: [facility], CR, XR KNEE LT 1TO2V, 02/02/2023, 12:14. FINDINGS: Bones: Patient is status post knee joint arthroplasty. Hardware components are in expected positions. Visualized bony structures are intact. Soft tissues: Overlying postoperative changes are noted. IMPRESSION: Expected post-operative appearance of a knee arthroplasty. Dictated by: Aguila Escobar M.D. on 01/12/2024 at 17:12 Approved by: Aguila Escobar M.D. on 01/12/2024 at 17:12
[2024-01-12] MEDS: ACETAMINOPHEN 325 MG TABLET 975 MG PO (13:25)
[2024-01-12] MEDS: MELOXICAM 7.5 MG TABLET 15 MG PO (13:26)
[2024-01-12] MEDS: LACTATED RINGERS 1,000 ML 42 ML IV (13:32)
--- NOTE | 2024-01-12 13:40 | PM.PREOP ---
Pre-operative Note Interval Note History & Physical reviewed/Exam performed by Physician: Yes Changes to H&P: No
[2024-01-12] MEDS: CEFAZOLIN 2 GM/100 ML PREMIX 100 ML IV ×2 (14:30→22:36)
[2024-01-12] MEDS: TRANEXAMIC ACID 1,000 MG VIAL 1000 MG INJ ×2 (14:38→15:55)
--- NOTE | 2024-01-12 14:53 | SUR.OPER ---
Supine on padded OR bed. Pillow under head, arms secured on padded armboards <90 degree abduction. Safety belt across torso. Non-operative leg secured with tape over blanket over lower leg. Operative leg secured in Donovan positioner. Foam padded brace at thigh of operative leg.
[2024-01-12] MEDS: ROPIVACAINE/EPI/CLONIDINE/KET 50 ML SYRINGE INJ (14:58)
--- NOTE | 2024-01-12 16:12 | P.OP_ITS ---
Operative Date/Time/Diagnoses Date of procedure: 01/12/24 Pre-op diagnosis: Right knee osteoarthritis Post-op diagnosis: same Procedure & Clinicians Procedure: Right total knee arthroplasty Same procedure as scheduled: Yes Surgeon: Josse De La Garza Inward Toll Operator: Angella Guillaume Anesthesia Type: Spinal, Sedation, Peripheral nerve block and Local Operative Notes Estimated Blood Loss (mL): 150 Tourniquet time (min): 54 Procedure in detail: Right Gap-Balanced Анна Persona Medial-Congruent Primary Total Knee Arthroplasty Implants: * Size 7 Cruciate Retaining Femoral Component * Size E Tibial Component * Size 13 Medial Congruent Polyethylene Insert * Unresurfaced Patella Procedure Summary: This 79-year-old female patient had severe erosive wear with complete eburnation of the joint surface on both the medial and lateral compartment. I took a +2 cut on the tibia because of this. She had significant medial tightness so I performed a posterior medial release and this significantly opened up her extension gap such that she opened up to 12 mm with 40 lb of pressure. Based on this I anticipated that a larger size polyethylene would be necessary and found this to be the case as she ended up with a size 13 polyethylene insert. Femoral rotation was set at 7? Procedure in Detail: This patient was seen preoperatively and evaluated for knee pain which was refractory to numerous nonoperative treatment modalities. Their pain correlated with radiographic changes demonstrating significant degeneration in the knee joint. The risks and benefits of continued nonoperative management versus operative management were discussed at length and all of the patient?s questions were answered. Additional educational materials providing further details beyond our discussion in clinic were provided via a publicly available patient education video which included the incidence of medical complications associated with total knee arthroplasty, reasons for revision following total knee arthroplasty, and patient satisfaction rates following total knee arthroplasty. That video can be accessed at [email or web address] . With this understanding of the risks inherent to the procedure, the patient elected to move forward with operative management. Following preoperative optimization, the patient was scheduled for surgery. The patient was met in the preoperative holding area the day of the procedure and all questions were answered. The patient?s nares were swabbed with betadine in order to decolonize them from MRSA. Informed consent was signed and the right limb was marked with indelible ink.? The patient was brought back to the operating room where anesthesia was induced. The patient was transferred to the operating table and all bony prominences were padded. The operative site was prepped and draped in the usual sterile fashion. A second prep stick was utilized following drape placement. The incision was marked corresponding to the medial aspect of the tibial tubercle and the patella. Ioban was wrapped circumferentially around the knee. Prior to incision, tranexamic acid and cefazolin were administered. Templating images were displayed. A timeout procedure was performed verifying the patient?s identity, medical comorbidities, allergies, relevant medications, anesthesia type and the surgical plan. All present were in agreement. The assistance of a physician architectural administrative assistant was required for positioning, room setup, soft tissue retraction and wound closure. Without this assistance, the procedure would have been significantly more challenging and time consuming.?? The tourniquet was inflated prior to incision. I made an anterior incision over the knee, dissected through the subcutaneous tissues and identified the lateral border of the VMO. Medial and lateral soft tissue flaps were developed. A medial parapatellar arthrotomy was performed ensuring that adequate capsular tissue would remain for closure at the conclusion of the procedure. The hip was brought into extension and the medial soft tissues were released off the joint line of the tibia. Tissue overlying the distal anterior femur was released to allow for later assessment for anterior notching but left in place. A portion of the retropatellar fat pad was excised while protecting the patellar tendon. The patella was everted. The patella was not resurfaced. Osteophytes were excised and a lateral facetectomy was performed. The patella was released from its everted position.?? I flexed the knee to 90 degrees and placed retractors to allow access to the notch. An opening reamer was used to gain access to the femoral canal and an intramedullary javid was introduced into the canal. Diaphyseal fit was obtained in order to allow a distal femoral resection at 5 degrees relative to the anatomic axis, thereby aiming to achieve mechanical alignment of the eventual implant. A +2 resection was planned and assessed using an ata wing. I then made the cut using a sagittal saw. This provided additional access to the femoral notch. The ACL and PCL were excised. Retractors were placed on the lateral and medial tibia. I hyperflexed the knee while externally rotating it to sublux the tibia anteriorly. I placed a PCL retractor posteriorly and used this to provide additional anterior subluxation. The remainder of the PCL root was released. An intramedullary reamer was used in the ACL footprint to provide access to the tibial canal. An extramedullary guide was positioned to allow a resection perpendicular to the anatomic and mechanical axes of the tibia, thereby aiming to achieve mechanical alignment of the eventual implant. A +2 resection off the medial tibia was planned and the tibial cutting jig was pinned in place. I evaluated the cut depth, varus-valgus alignment and slope of the planned tibial resection and deemed them satisfactory. I cut the tibia with a sagittal saw while using retractors to protect the MCL, patellar tendon, and posterolateral structures.? The knee was repositioned in extension and the Fuzion soft tissue balancing gauge was introduced. This demonstrated that there was excess tension on the medial side. I therefore performed a posterior medial release off the back corner of the tibia with the knee in flexion. This improved the balance such that the knee rested with only 1 of medial tightness relative to lateral. When 40 pounds of force was applied to the Fuzion device, the extension gap opened to 12 mm. I moved the knee into 90 degrees of flexion, and the Fuzion device was recalibrated by removing a 9 mm tameka to allow assessment of the flexion gap. The Fuzion was placed perpendicular to the resected surface of the tibia and the resected surface of the distal femur. Forty pounds of traction was applied to match the tension of the extension gap. This externally rotated the femur to 7 degrees. Pins were placed in the 12 mm holes. The measured resection guide was placed over the pins to allow sizing. Appropriate sizing was determined and a 4-in-1 block was placed. This was double checked using the Fuzion device to ensure that it would open to an equal distance as the extension gap when the same amount of force was applied. The Fuzion block was also used to assess flexion gap symmetry. An ata wing was used to ensure there would be no anterior notching. Retractors were placed to protect the soft tissues during resection. Captured cuts were performed with a sagittal saw for the anterior and posterior femur as well as the corresponding chamfers.? Trial components were placed and the construct was assessed. Range of motion was assessed by ensuring the knee could achieve full extension and assessing maximum passive knee flexion by elevating the femur and allowing the heel to passively fall towards the buttock. Gap symmetry was assessed by stressing the medial and lateral compartments in both extension and flexion. Laxity was assessed in both extension and flexion and the polyethylene trial was adjusted with shims as necessary. Patellar tracking was assessed with knee flexion. Once satisfied with the construct, I moved forward with implant insertion. Lug holes were drilled in the femur and the tibia was prepped ensuring appropriate sizing and rotation relative to the tibial tubercle.?? The bony ends were irrigated and cement was prepared. Portions of the anterior chamfer cut were utilized as cement restrictors in the femur and tibia where intramedullar rods had been utilized. Cement was placed on the entirety of the undersurface of both the tibial and femoral components. Cement was placed onto the dry tibia and pressurized into the cancellous bone. I impacted the tibial component into place. Cement was removed. The tibia was reduced underneath the femur and placed cement onto the dry surface of the resected femur. I placed the femoral component as well as the intended polyethylene trial. Cement was removed from around the femur. I brought the knee into extension and manually pressurized the construct by pushing on the heel while the cement dried. The knee was bathed in a dilute mixture of betadine and peroxide. A mixture of Ropivacaine, Epinephrine, Clonidine and Toradol was infiltrated throughout the soft tissues into structures including the VMO, patellar tendon, quadriceps tend on, MCL and femoral periosteum. A low adductor canal block was also performed using this mixture unless one had been placed preoperatively by anesthesia. The knee was copiously irrigated with pulse lavage. Once cement had been allowed to dry the knee was again trialed. Range of motion was assessed by ensuring the knee could achieve full extension and assessing maximum passive knee flexion by elevating the femur and allowing the heel to passively fall towards the buttock. Gap symmetry was assessed by stressing the medial and lateral compartments in both extension and flexion. Laxity was assessed in both extension and flexion and the polyethylene trial was adjusted with shims as necessary. Patellar tracking was assessed with knee flexion. The tourniquet was let down and the polyethylene trial was removed. I inspected the knee inspected for excess cement and any residual bleeding. Once hemostasis was achieved I inserted the final polyethylene and ensured appropriate engagement of the dovetail locking mechanism.?? The arthrotomy was closed with absorbable interrupted suture ensuring that this extended to the top of the arthrotomy. This was backed up with running barbed suture throughout the arthrotomy. The skin was closed with 2-0 and 3-0 sutures. Surgical glue was applied and a soft dressing was placed.?The sponge, instrument and needle counts were reported as being correct at the end of the case.??No obvious complications occurred. The patient was transferred from the operating table back to a stretcher. The patient emerged from anesthesia without difficulty and was taken to the PACU in a stable condition.? Plan for aftercare: * Weightbearing as tolerated * Mobilization as soon as the patient has recovered from anesthesia. If physical therapists are unavailable at the time the patient is ready to ambulate, then nursing staff should help patient ambulate * Aspirin 81 twice per day for DVT prophylaxis * Multimodal pain regimen with no IV opioids ordered * Anticipate discharge home tomorrow * Follow up at [facility] in 2 weeks * Detailed postoperative instructions available at [email or web address]
[2024-01-12] MEDS: ACETAMINOPHEN 325 MG TABLET 650 MG PO (18:23)
[2024-01-12] MEDS: LACTATED RINGERS 1,000 ML 100 ML IV (18:23)
[2024-01-12] MEDS: IBUPROFEN 600 MG TABLET PO (18:23)
--- NOTE | 2024-01-12 18:38 | PC.NURSE ---
Pt arrived to Room 215 from PACU and oriented to room/unit. VSS, afebrile on RA. She initially denies pain and has numbness to BLE's. She is able to wiggle her toes and bend her knees but not able to lift R leg. Mike wrap to R Knee c/d/i. +CMS to BLE's. LR IVF at 100 ml/hr, ICe to R knee, admission assessment completed, POSTOP VS per protocol, SCD's, encouragd IS, bed alarm, call light in reach, frequent rounding. at bedside supportive. Patient with a history of dementia and frequent falls at home.
[2024-01-12] MEDS: OXYCODONE IR 5 MG TABLET PO ×2 (19:01→21:32)
[2024-01-12] MEDS: DOCUSATE 100 MG CAPSULE PO (21:33)
[2024-01-12] MEDS: ASPIRIN EC 81 MG TABLET PO (21:33)
[2024-01-13] VITALS: BP 124/68; PULSE 65; TEMP 36.4; O2SAT 97
[2024-01-13] MEDS: ACETAMINOPHEN 325 MG TABLET 650 MG PO ×3 (00:11→11:54)
[2024-01-13] MEDS: IBUPROFEN 600 MG TABLET PO ×3 (00:11→11:53)
[2024-01-13] MEDS: OXYCODONE IR 5 MG TABLET PO ×3 (02:17→09:18)
[2024-01-13 04:00] VITALS: BP 113/70; PULSE 74; RESP 16; TEMP 36.8; O2SAT 96
[2024-01-13] MEDS: CEFAZOLIN 2 GM/100 ML PREMIX 100 ML IV (06:33)
[2024-01-13 06:37] LABS: Hematocrit 38.7 % (36-46); Hemoglobin 13.2 g/dL (12.0-16.0)
--- NOTE | 2024-01-13 09:05 | CM.DANOTE ---
B DCP Assessment Note pt is a 79yo F POD [address] knee [address] De La Garza. PMH of left knee replacement by Hol[facility] Jan 28. PCP Ivonne Lan Payer Medicare and Ravi MARINA reviewed EMR. Per chart review, pt has PMH of Alzheimer's. Lives with spouse Vin in [facility]. Ann assists with IADLs/driving. has other local support family/friends. Last admission, pt dc'd home next day with spouse support no CM needs. PT pending. P: pending PT eval today. Anticipate return home with spouse today. no identified barriers to safe dc home at this time. CM team will continue to follow closely. SALAS Kee Discharge Planning/Care Management CM Discharge Assessment Start: 01/13/24 09:02 Freq: Status: Active Protocol: Document 01/13/24 09:02 SL (Rec: 01/13/24 09:05 SL [id number]) Discharge Planning Assessment Assigned Technical Support Technician SALAS Morris DPOA/Assigned Designee Name radha Banuelos Contact Information [phone] Advance Directives? Yes Advance Directives on File Yes History Provided By Patient Prior Living Arrangements House Household Members spouse Type of transporation used prior to Relies on Others admit Comment PMH of Alzheimer's DME Already Rented / Owned FWW / Walker Discharge Plan Home Referrals Initiated None needed Review Status In Process Please Provide Date Initial DC 01/13/24 Assessment Was Performed Next Review Type Continued Stay Review Pre-Anesthesia Assessment Start: 01/03/24 09:45 Freq: Status: Active Protocol: Document 01/03/24 09:45 LB (Rec: 01/03/24 10:15 LB [id number]) Pre-Anesthesia Assessment PAC Comment 01/03/24 Phone assessment. Spoke with . Pt has dementia. Patient Information Reviewed Via Phone Assessment Assessment Completed With Spouse Diagnostic Results BMP/CMP,CBC Comment 10/25/23 outside labs. Primary Care Provider Ivonne Lan Seen Specialist in Last 12 Months Yes Specialist Seen Orthopedist Primary Language Ghanaian Preferred Language Ghanaian Medical Records Library Professor Required No Height 162.56 cm Weight 86.183 kg Body Mass Index (BMI) 32.5 Hearing Ability Normal Visual Assist Glasses Dentition Type Teeth, Natural Present Barriers to Learning Memory Other Aids No Comment Short term memory issue. Hx Anesthesia Reactions No Hx Family Anesthesia Reaction No Hx Malignant Hyperthermia No Hx Blood Transfusions No Anesthesia Review Requested No Manager Hair No alcohol intake never Smoking Status Never smoker Substance Use Type does not use Pain Present Pain Reported Comment Right knee. Musculoskeletal Symptoms Difficulty Walking,Joint Pain History of Falling (Recent or History of Yes ) Patient is completely paralyzed or No completely immobile Comment Will bring walker. Currently using a walking stick. Is patient on oxygen? No Does patient have HNIDS/SOB No Hx Sleep Apnea No Currently Taking a Beta Timothy No Can You Climb a Flight of Stairs Without Yes SOB Hx Chest Pain No Hx SOB No Hx Syncope or Dizziness No Anti-Coagulant Therapy Yes: Aspirin 81mg daily. Cardiac Testing No Hx Pacemaker/ICD No Cardiac Clearance Received Not Applicable Dysphagia No Bladder Pattern Incontinent Hx Urinary Self Catheterization No Comment Uses peripads. Diabetes No HgbA1C 5.0 Date 10/25/23 Patient No Lactating No Hx Drug Resistant Organism No Presence of External or Internal Medical Yes: Left knee. Devices Have you had any close contact with No someone diagnosed with COVID-19? Are you experiencing any of these No symptoms symptoms? Received a COVID vaccine? Yes Comment Denies covid past 2 months. Marital Status Lives With spouse Current Living Arrangements House Number of Floors (Floors) One Floor Number of Stairs To Enter/Railing? 1 step without railing to enter. Support System Spouse Patient Discharge Plan Description Return Home Additional comment Unsure of LOS. Do You Have Any Spiritual Beliefs That No May Affect Your HC Choices? Do You Have Any Cultural Practices That No May Affect Your HC Choices? Health Care Proxy/Next of Kin Howard Soctt - Health Care Proxy Emergency Contact Name Meño (Brother) Emergency Contact Advance Directives? Yes Advance Directives on File No Power of Police Inspector Yes Power of Police Inspector Name Howard () Power of Police Inspector PAC Instructions Assistance for 24 hours post- op,Do not shave/clip surgical site,Durable medical equipment ,Medications to take/avoid,No ETOH/petroleum product on skin DOS,NPO,Post-op transportation,Pre-surgical wash,Sensory aids,Sturdy shoes /comfortable clothes,Do not bring valuables and remove jewelry
[2024-01-13] MEDS: DOCUSATE 100 MG CAPSULE PO (09:18)
[2024-01-13] MEDS: ASPIRIN EC 81 MG TABLET PO (09:18)
--- NOTE | 2024-01-13 09:40 | P.DS_ITS ---
History of Present Illness History of Present Illness Date Patient Seen: 01/13/24 Time Patient Seen: 09:15 Chief complaint: OPB Narrative: This patient was seen preoperatively and evaluated for knee pain which was refractory to numerous nonoperative treatment modalities. Their pain correlated with radiographic changes demonstrating significant degeneration in the knee joint. The risks and benefits of continued nonoperative management versus operative management were discussed at length and all of the patient?s questions were answered. Additional educational materials providing further details beyond our discussion in clinic were provided via a publicly available patient education video which included the incidence of medical complications associated with total knee arthroplasty, reasons for revision following total knee arthroplasty, and patient satisfaction rates following total knee arthroplasty. That video can be accessed at [email or web address] . With this understanding of the risks inherent to the procedure, the patient elected to move forward with operative management. Following preoperative optimization, the patient was scheduled for surgery. Discharge Providers Provider Discharge Date: 01/13/24 Primary care physician: Ivonne Lan PA-C Consults: 01/12/24 06:00 Consult to Anesthesiology Routine Comment: Consulting Provider: Anesthesiologist Reason for consultation: Regional block for post operative pain control Has provider been notified: No 01/12/24 17:38 Consult to Discharge Planning Routine Comment: Consult to Occupational Therapy Evaluate & Treat Comment: Physician Instructions: Evaluate and treat Consult to Physical Therapy Evaluate & Treat Comment: Physician Instructions: postop TKA protocol Discharge provider: Patrick Croft PA-C Summary Hospital Course Discharge Diagnosis: Right knee osteoarthritis Hospital Course: Procedure: Right total knee arthroplasty Same procedure as scheduled: Yes Surgeon: Josse De La Garza Powerhouse Electrician Apprentice: Angella Guillaume Anesthesia Type: Spinal, Sedation, Peripheral nerve block and Local Operative Notes Estimated Blood Loss (mL): 150 Tourniquet time (min): 54 Procedure in detail: Right Gap-Balanced Анна Persona Medial-Congruent Primary Total Knee Arthroplasty Implants: * Size 7 Cruciate Retaining Femoral Component * Size E Tibial Component * Size 13 Medial Congruent Polyethylene Insert * Unresurfaced Patella Procedure Summary: This 79-year-old female patient had severe erosive wear with complete eburnation of the joint surface on both the medial and lateral compartment. I took a +2 cut on the tibia because of this. She had significant medial tightness so I performed a posterior medial release and this significantly opened up her extension gap such that she opened up to 12 mm with 40 lb of pressure. Based on this I anticipated that a larger size polyethylene would be necessary and found this to be the case as she ended up with a size 13 polyethylene insert. Femoral rotation was set at 7? Status at Discharge Cognitive/behavioral status at discharge: oriented Functional status at discharge: uses cane/walker Overall status at discharge: patient is back to baseline Time Spent with Patient Time spent: Less than 30 minutes Exam Vital Signs (past 8 hours): - 01/13/24 04:00 Temperature 98.2 F Pulse Rate 74 Respiratory Rate 16 Blood Pressure 113/70 Pulse Oximetry 96 Oxygen Flow Rate 0 Oxygen Delivery Method Room Air Oxygen Flow Rate 0 Narrative Exam Narrative: patient found sitting comfortably in bed with her at bedside. Denies any shortness of breath nausea vomiting fever or chills. Denies any new numbness or tingling in the lower extremities. Patient feels ready to be discharged home. 5/5 strength in hip flexors, quadriceps, hamstrings, DF, PF, EHL bilaterally. Sensation to light touch intact throughout BLE. Calves soft, compressible, nontender. ?Dressing placed intraoperatively CDI. SCDs on and functioning Resp Effort & Inspection: normal respiratory effort and able to speak in complete sentences Objective Labs 01/13/24 05:40 Labs: Laboratory Results - last 24 hr 01/13/24 05:40 Hgb 13.2 Hct 38.7 PFSH Medical History (Updated 01/23/23 @ 09:23 by Ene Viveros RN) Depression Balance problem Chronic UTI HLD (hyperlipidemia) Seizures Alzheimer's dementia Surgical History (Updated 01/03/24 @ 09:45 by Juliana Castro RN) History of total left knee replacement (01/2023) Hx of craniotomy (07/2019) Social History household members: spouse Smoking Status: Never smoker alcohol intake: never Discharge Assessment & Plan Assessment and Plan Assessment: Status post right TKA Plan of Treatment: Plan to discharge home pending PT. Ambulate frequently with assistive devices. Baseline pain control with acetaminophen 500 mg every 4 hours PRN and meloxicam 7.5 mg b.i.d. Patient has been already prescribed oxycodone 5 mg q.4 hours as needed for breakthrough pain and zofran 4mg q8hr for post operative nausea. Aspirin 81 mg b.i.d. for 6 weeks for VTE prophylaxis. initiate postoperative physical therapy in 5-10 days. Follow up in clinic in 2 weeks for wound check. Discharge Plan Discharge Plan Patient Disposition: Home Provider Discharge Comment: DC Pending PT approval Discharge orders & Medications Discharge Orders: Discharge (Order); Ordered 01/13/24 Ordered By: Patrick Croft Prescriptions: Continued ibuprofen 200 mg Tablet 200 - 400 mg PO DAILY PRN (Reason: knee pain.) aspirin 81 mg Capsule 81 mg PO DAILY Follow up/Referrals: Ivonne Lan PA-C [Primary Care Provider] - Diet/Activity/Treatments Diet: Diet as Tolerated Activity: Ambulate with assistive devices frequently. Cold/Heat Therapy: Ice to knee as needed for pain. Skin/Wound/Dressing Care Report to your healthcare provider any signs of infection, such as:: chills, fever, night sweats, unusual drainage and unusual redness Dressing: May shower. Leave dressing in place until follow up in office. No bathing or otherwise soaking incision. Call the office if the dressing becomes saturated inside. Visit Report/Discharge Packet Instructions: DI for Knee Replacement Stand Alone Forms: Patient Portal/API, Surgery Discharge Discharge Data Primary Care Provider: Ivonne Lan Attending Provider: Josse De La Garza
--- NOTE | 2024-01-13 10:20 | PT.IIE ---
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) Hx of craniotomy (07/2019) Medical History (Last Updated 01/23/23 @ 09:23 by Ene Viveros RN) Alzheimer's dementia Balance problem Chronic UTI Depression HLD (hyperlipidemia) Seizures Physical Therapy Inpatient Evaluation/Re-Eval M1 PT/OT-IP Prior Functional Status Start: 01/13/24 13:03 Freq: NEEDED Status: Active Protocol: Document 01/13/24 10:20 AB (Rec: 01/13/24 13:19 AB [id number]) Medical Review Prior Functional Status Medical History Reviewed Yes Communication able to make needs known Mobility and Gait pt stated that she was modified independent with all mobilities and ambulation without AD but occasionallys uses a SPC for outdoor mobility Social History Household Members spouse Living Arrangements House Number of Floors (Floors) One Floor Number of Stairs To Enter/Railing? 1 platform step to enter the house Home Environment Standard Height Toilet,Walk in Shower Home Equipment Front Wheel Walker,Grab Bars Near Toilet,Grab Bars In Shower Additional Social History Comment pt's brother will be available to assist pt on d/c; spouse will not be able to assist pt M2 PT-IP Current Condition Start: 01/13/24 13:03 Freq: NEEDED Status: Active Protocol: Document 01/13/24 10:20 AB (Rec: 01/13/24 13:19 AB [id number]) Physical Therapy Current Condition Current Condition Evaluation Date 01/13/24 Treatment Diagnosis s/p R TKA; difficulty in walking Onset Date 01/12/24 M3 PT-IP Subjective Start: 01/13/24 13:03 Freq: NEEDED Status: Active Protocol: Document 01/13/24 10:20 AB (Rec: 01/13/24 13:19 AB [id number]) Subjective Physical Therapy Visit Type Type Initial Evaluation Visit Start Time 10:20 Visit Stop Time 11:20 Number of STRIPPING SHOVEL OILER Visits 0 Physical Therapy Visit Comments Patient Comments agreeable to do PT Therapy Pain Assessment Pain When Pain Assessed During Mobility Location Right Knee Intensity 6 Scale Used Numeric (0 - 10) Pain Behaviors Guarding,Holding Area Pain Management Techniques Apply Cold,Distraction, Modification of Treatment,Re- positioning,Timing of Activity with Medications M4 PT-IP Mobility and Gait Start: 01/13/24 13:03 Freq: NEEDED Status: Active Protocol: Document 01/13/24 10:20 AB (Rec: 01/13/24 13:19 AB [id number]) PT-Bed Mobility Assessment Supine to Sit Supine to Sit Standby Assistance PT-Transfer Assessment Sit to and From Stand Sit to and from Stand Contact Guard Assistance, Moderate Assistance,1 Person Assistance,Use of Upper Extremities Equipment Transfer Assistive Device Gait Belt,Front Wheeled Walker Orthotic/Prosthetic Devices or Brace: No Transfers Transfer Destination Chair Transfer Technique ambulated Transfer Ability Level of Assist Contact Guard Assistance,1 Person Assistance,Use of Upper Extremities Comments Mobility Comments pt supine in bed and spouse in room. obtained PLOF and home set up from pt and spouse. post-op folder provided and reviewed with pt. BP: 107/73 pt completed supine to sit SBA . required increase time to complete. max A for scooting to EOB. BP: 127/68. completed sit to stand mod A and max cues. increase posterior trunk leaning needing mod A for recentering body. cued to use FWW for support. pt ambulated in room using FWW initially requiring min A but midway was only requiring CGA. cued for safety. pt sat on the chair. pt agreed to do stairs. completed sit to stand from the chair CGA and ambulated to the platform step using FWW CGA. completed up/ down step using fWW min A and max cues . pt repeated again but on requiring min cues. pt ambulated back to her room and sat on the chair. positioned pt on the chair. call light and table placed within reach. pt and spouse without any questions. spouse will not be able to assist pt at home but spouse stated that pt's brother will be at home to assist pt. pt with previous L TKA and her brother was the person who assist pt. caregiver training was also completed at that time. Gait Assessment Gait Gait Assistance Required: Contact Guard Assist,Minimum Assistance Distance (Feet) 30 Able to Maintain Weight Bearing Status Yes During Gait Assistive Devices Assistive Device Gait Belt,Front Wheeled Walker Orthotic/Prosthetic Devices or Brace: No Gait Deviations General Gait Pattern Antalgic,Decreased Stride Length,Decreased Feet Clearance Factors Limiting Gait Function Factors Limiting Gait Function Decreased Activity Tolerance, Decreased Strength,Difficulty Following Directions,Limited Range of Motion,Pain,Poor Balance,Poor Safety Awareness Stair Climbing Assessment Evaluation Level of Assist On Stairs Minimal Assistance Devices Stair Climbing Assistive Devices Front Wheel Walker Technique/Endurance Stair Climbing Direction Ascend and Descend Stair Climbing Technique Step to Step Number of Steps Climbed 1 Query Text: Stair Climbing Set # Repetitions (reps) 2 PT-Balance Assessment Sitting Balance and Reactions Static Sitting Balance Ability Normal Dynamic Sitting Balance Ability Good Standing Balance and Reactions Static Standing Balance Ability Fair Dynamic Standing Balance Ability Fair Device Used FWW M5 PT-IP Objective Assessments Start: 01/13/24 13:03 Freq: NEEDED Status: Active Protocol: Document 01/13/24 10:20 AB (Rec: 01/13/24 13:19 AB [id number]) Orientation Orientation/Cognition Level of Alertness Alert Orientation Name,Place,Situation Language Function Ability No Deficits Noted Memory Description Short Term Impaired,Longterm Impaired Gross Range of Motion Lower Extremity ROM Assessment Right Impaired Impairments R knee flexion: ~ 70 deg R knee extension : ~ 20 deg less to 0 Strength Lower Extremity Strength Assessment Within Functional Limits Coordination Assessment Gross Coordination Gross Coordination WNL Sensation Assessment Sensation Gross Sensation WNL Muscle Tone Muscle Tone WNL Yes M6 PT-IP Treatment Start: 01/13/24 13:03 Freq: NEEDED Status: Active Protocol: Document 01/13/24 10:20 AB (Rec: 01/13/24 13:19 AB [id number]) Physical Therapy Treatment Exercises Exercises Heel Slides Education Education Provided Precautions,Weight Bearing Status,Post-Op Packet,Safety M7 PT-IP Assessment and Plan Start: 01/13/24 13:03 Freq: NEEDED Status: Active Protocol: Document 01/13/24 10:20 AB (Rec: 01/13/24 13:19 AB [id number]) PT Summary Assessment and Plan Potential Rehabilitation Potential Fair Status of Condition at Evaluation Evolving Summary Impairments Pain,ROM,Strength,Balance, Coordination,Sensation,Tone, Cognition,Bed Mobility, Transfers,Gait,Activity Tolerance Assessment Summary pt is a 79 y/o F s/p R TKA POD 1. pt is WBAT on RLE. pt requiring CGA to mod A for sit to stand. initially requiring min A for ambulation but after a few steps was only needing CGA. pt plans to go home and her brother will be assist her. pt has outpt PT set up. Goals Bed Mobility Goal Independent Transfer Goal Independent,Front Wheeled Walker Gait Goal Independent,Front Wheel Walker Gait Distance 200 Other Goals up/down 1 platform step using FWW mod I Days to Meet Goals 5 Frequency of Treatment Frequency Of Treatment Twice a Day Treatment Plan Physical Therapy Treatment Plan Bed Mobility Training,Transfer Training,Gait Training, Therapeutic Exercise,Balance Retraining,Post Op Education, Discharge Planning,Hot or Cold Pack,Neuromuscular Re-ed, Coordination Retraining,Manual Therapy Weight Bearing Status Weight Bearing Status Weight Bear as Tolerated Allowed Weight Bearing Amount (enter % RLE WBAT or #) (%) Recommendations To Nursing Amount of Assist Needed 1 Person Assist Discharge Recommendations PT Discharge Recommendations Home with Assistance, Outpatient PT Transportation Needs at Discharge Private Vehicle
--- NOTE | 2024-01-13 12:08 | PC.NURSE ---
D/c summary reviewed with pt, including activity restrictions, s/s of stroke. IV removed. Pt dressed with assistance of HAT BODY INSPECTOR. Confirmed all belongings were with pt. Pt exited via w/c with HAT BODY INSPECTOR and spouse to private vehicle.
== END 2024-01-13 12:34 | disposition home or self-care (01) ==
LOC: OR 11:40 → AC 11:40
PROVIDERS: PCP Physician Assistant; Referring Provider Orthopaedic Surgery Adult Reconstructive Orthopaedic Surgery; Visit Provider Orthopaedic Surgery Adult Reconstructive Orthopaedic Surgery
PROC: 0SRC0JZ Replacement of Right Knee Joint with Synthetic Substitute, Open Approach (ICD-10-PCS; CPT 27447; principal; 2024-01-12 13:15)
DX: M17.11 Unilateral primary osteoarthritis, right knee (principal); Z96.652 Presence of left artificial knee joint; M25.761 Osteophyte, right knee
CPT/HCPCS: 27447; 36415; 73560; 85014; 85018; 97162; 97530; C1776; J0690; J2405; J2704